=== PATIENT | female | born 1985 | race African-American/Black ===

== ENCOUNTER 2019-04-18 11:13 | Emergency (ER) | payer OTHER ==
[~2019-04-18] VITALS: Ht 149.9 cm; Wt 39.9 kg
[2019-04-18 13:19] VITALS: BP 137/87
== END 2019-04-18 13:45 | disposition left against medical advice (07) ==
LOC: ER 11:13
DX: R07.89 Other chest pain (principal); I10 Essential (primary) hypertension; F12.10 Cannabis abuse, uncomplicated; Z53.29 Procedure and treatment not carried out because of patient's decision for other reasons
CPT/HCPCS: 71046; 93005